=== PATIENT | female | born 1965 | race Two or more races ===

== ENCOUNTER 2017-03-04 18:43 | Emergency (ER) | payer MEDICARE ==
[2017-03-04] MEDS ORDERED: ASPIRIN 81 MG TABLET, CHEWABLE PO ONE (19:07)
--- NOTE | 2017-03-04 19:21 | ER Document Report ---
ED Medical Screen (RME) - General TRAVEL OUTSIDE OF THE [place] IN LAST 30 DAYS: No <NIKOLAS BARLOW - Last Filed: 03/04/17 19:22> <JEROME LEWIS - Last Filed: 03/04/17 20:23> - General Chief Complaint: Chest Pain Stated Complaint: CHEST PAIN Time Seen by Provider: 03/04/17 19:05 Notes: Patient is a 51 year old female presenting to the emergency department for chest pain that was onset this morning. Patient states she has pain in the center of her chest that shoots into her back. Patient states it hurts to take a deep breath and she also feels short of breath. Patient denies any personal or family history of [place] or stroke. Patient denies any personal history of diabetes mellitus or hypertension. Patient has arthritis. (NIKOLAS BARLOW) - Related Data Allergies/Adverse Reactions: abatacept [From Orencia] Allergy (Verified 03/04/17 18:57) metronidazole [From Flagyl] Allergy (Verified 03/04/17 18:57) morphine Allergy (Verified 03/04/17 18:57) Past Medical History - Social History Chew tobacco use (# tins/day): No Frequency of alcohol use: Occasional Drug Abuse: None Pulmonary Medical History: Reports: Hx Bronchitis Renal/ Medical History: Denies: Hx Peritoneal Dialysis Musculoskeltal Medical History: Reports Hx Arthritis - RA Past Surgical History: Reports: Hx Abdominal Surgery - Gastric bypass, tummy tuck, Hx Breast Surgery - biopsy, Hx Cholecystectomy, Hx Gynecologic Surgery, Hx Hysterectomy - Immunizations Hx Diphtheria, Pertussis, Tetanus Vaccination: Yes - 2014 History of Influenza Vaccine for 02/2017 - 07/2017 Season: Yes Influenza Administration Date for 02/2017 - 07/2017 Season: 02/26/16 <NIKOLAS BARLOW - Last Filed: 03/04/17 19:22> Physical Exam <NIKOLSA BARLOW - Last Filed: 03/04/17 19:22> <JEROME LEWIS - Last Filed: 03/04/17 20:23> - Vital signs Vitals: Temp Pulse Resp BP Pulse Ox 98.3 F 98 16 120/63 95 03/04/17 18:59 03/04/17 18:59 03/04/17 18:59 03/04/17 18:59 03/04/17 18:59 - Notes Notes: GENERAL: Alert, interacts well. No acute distress. LUNGS: Clear to auscultation bilaterally, no wheezes, rales, or rhonchi. No respiratory distress. No tenderness when palpating the anterior chest. HEART: Regular rate and rhythm. No murmurs, gallops, or rubs. ABDOMEN: Soft, non-tender. Non-distended. Bowel sounds present in all 4 quadrants. (NIKOLAS BARLOW) Course - Laboratory Result Diagrams: 03/04/17 19:38 03/04/17 19:38 <JEROME LEWIS - Last Filed: 03/04/17 20:23> - Vital Signs Vital signs: Temp Pulse Resp BP Pulse Ox 98.3 F 98 16 120/63 95 03/04/17 18:59 03/04/17 18:59 03/04/17 18:59 03/04/17 18:59 03/04/17 18:59 - Laboratory Laboratory results interpreted by me: 03/04/17 19:38 Sodium 147.1 H BUN 6 L Alkaline Phosphatase 149 H Scribe Documentation - Scribe Written by Scribe:: Cain Dickson 03/04/17 19:30 acting as scribe for :: Rob <NIKOLAS BARLOW - Last Filed: 03/04/17 19:22>
[2017-03-04 19:59] LABS: ABSOLUTE EOSINOPHILS # (AUTO) 0.1 10^3/uL (0.0-0.6); ABSOLUTE LYMPHOCYTES (AUTO) 1.3 10^3/uL (0.5-4.7); ABSOLUTE MONOCYTES (AUTO) 0.6 10^3/uL (0.1-1.4); ABSOLUTE NEUT (AUTO) 3.8 10^3/uL (1.7-8.2); BASOPHILS % (AUTO) 0.4 % (0-2); EOSINOPHILS % (AUTO) 2.1 % (0-6); HEMATOCRIT 38.6 % (36.0-47.0); HEMOGLOBIN 12.8 g/dL (12.0-15.5); HGB HCT DIFFERENCE -0.2; LYMPHOCYTES % (AUTO) 22.5 % (13-45); MEAN CORPUSCULAR HEMOGLOBIN 28.2 pg (27.0-33.4); MEAN CORPUSCULAR HGB CONC 33.1 g/dL (32.0-36.0); MEAN CORPUSCULAR VOLUME 85 fl (80-97); MONOCYTES % (AUTO) 10.5 % (3-13); RED BLOOD COUNT 4.53 10^6/uL (3.72-5.28); RED CELL DISTRIBUTION WIDTH 13.4 % (11.5-14.0); SEGMENTED NEUTROPHILS % (AUTO) 64.5 % (42-78); WHITE BLOOD COUNT 5.9 10^3/uL (4.0-10.5)
[2017-03-04 20:10] LABS: ALANINE AMINOTRANSFERASE 36 U/L (9-52); ALBUMIN 4.2 g/dL (3.5-5.0); ALKALINE PHOSPHATASE 149 U/L (38-126); ANION GAP 13 (5-19); ASPARTATE AMINO TRANSFERASE 32 U/L (14-36); BILIRUBIN,DIRECT 0.4 mg/dL (0.0-0.4); BILIRUBIN,TOTAL 0.4 mg/dL (0.2-1.3); BLOOD UREA NITROGEN 6 mg/dL (7-20); CALCIUM 9.4 mg/dL (8.4-10.2); CARBON DIOXIDE 28 mmol/L (22-30); CHLORIDE 106 mmol/L (98-107); CREATINE KINASE 62 U/L (30-135); CREATININE RESULT 0.75 mg/dL (0.52-1.25); GLUCOSE 79 mg/dL (75-110); POTASSIUM 4.1 mmol/L (3.6-5.0); SODIUM 147.1 mmol/L (137-145); TOTAL PROTEIN 7.4 g/dL (6.3-8.2)
[2017-03-04 20:22] LABS: CREATINE KINASE MB 0.61 ng/mL (<4.55)
[2017-03-04 20:23] LABS: TROPONIN I < 0.012 ng/mL
[2017-03-04] MEDS ORDERED: NORMAL SALINE 1000 ML 500 ML IV ONE (20:39)
--- NOTE | 2017-03-04 20:39 | ER Document Report ---
ED General - General Chief Complaint: Chest Pain Stated Complaint: CHEST PAIN Time Seen by Provider: 03/04/17 19:05 Notes: Patient is a 51-year-old female who comes emergency department for chief complaint of pain in her chest in the middle that started this morning, she states that when she takes deep breath it hurts through to her back, she states that it makes her feel slightly short of breath. She denies cough, fever, abdominal pain, nausea, vomiting, dizziness. She does not smoke. Past medical history of rheumatoid arthritis, on Plaquenil, has a fentanyl patch, also has a history of gastric bypass, cholecystectomy, hysterectomy. Denies any personal or family history of heart disease, DC, or blood clots. Denies recent travel or surgery, denies lower extremity swelling. She states that she was exposed to a child who has a cough, she also states that she has been having more pain than usual and is taking Tylenol in addition to her fentanyl patch. TRAVEL OUTSIDE OF THE [place] IN LAST 30 DAYS: No - Related Data Allergies/Adverse Reactions: abatacept [From Orencia] Allergy (Verified 03/04/17 18:57) metronidazole [From Flagyl] Allergy (Verified 03/04/17 18:57) morphine Allergy (Verified 03/04/17 18:57) Past Medical History - General Information source: Patient - Social History Smoking Status: Never Smoker Chew tobacco use (# tins/day): No Frequency of alcohol use: Occasional Drug Abuse: None Lives with: Family Family History: Reviewed & Not Pertinent Pulmonary Medical History: Reports: Hx Bronchitis Renal/ Medical History: Denies: Hx Peritoneal Dialysis Musculoskeltal Medical History: Reports Hx Arthritis - RA Past Surgical History: Reports: Hx Abdominal Surgery - Gastric bypass, tummy tuck, Hx Breast Surgery - biopsy, Hx Cholecystectomy, Hx Gynecologic Surgery, Hx Hysterectomy - Immunizations Hx Diphtheria, Pertussis, Tetanus Vaccination: Yes - 2013 Review of Systems - Review of Systems Constitutional: No symptoms reported EENT: No symptoms reported Cardiovascular: See HPI Respiratory: See HPI Gastrointestinal: No symptoms reported Genitourinary: No symptoms reported Female Genitourinary: No symptoms reported Musculoskeletal: See HPI Skin: No symptoms reported Hematologic/Lymphatic: No symptoms reported Neurological/Psychological: No symptoms reported Physical Exam - Vital signs Vitals: Temp Pulse Resp BP Pulse Ox 98.3 F 98 16 120/63 95 03/04/17 18:59 03/04/17 18:59 03/04/17 18:59 03/04/17 18:59 03/04/17 18:59 Interpretation: Normal - General General appearance: Appears well, Alert - HEENT Head: Normocephalic, Atraumatic Eyes: Normal Pupils: PERRL - Respiratory Respiratory status: No respiratory distress Chest status: Tender - Patient is tender over the chest wall along the sternum on both sides and between the ribs. Reproducible. No erythema, swelling, crepitus, or ecchymosis Breath sounds: Normal. No: Decreased air movement, Nonproductive cough, Wheezing Chest palpation: Normal - Cardiovascular Rhythm: Regular Heart sounds: Normal auscultation Murmur: No - Abdominal Inspection: Normal Distension: No distension Bowel sounds: Normal Tenderness: Nontender Organomegaly: No organomegaly - Back Back: Normal, Nontender - Extremities General upper extremity: Normal inspection, Nontender, Normal color, Normal ROM , Normal temperature General lower extremity: Normal inspection, Nontender, Normal color, Normal ROM , Normal temperature, Normal weight bearing. No: Ivonne's sign - Neurological Neuro grossly intact: Yes Cognition: Normal Orientation: AAOx4 Hartman Coma Scale Eye Opening: Spontaneous Hartman Coma Scale Verbal: Oriented Camelia Coma Scale Motor: Obeys Commands Hartman Coma Scale Total: 15 Speech: Normal Motor strength normal: LUE, RUE, LLE, RLE Sensory: Normal - Psychological Associated symptoms: Normal affect, Normal mood - Skin Skin Temperature: Warm Skin Moisture: Dry Skin Color: Normal Course - Re-evaluation Re-evalutation: Patient is well-appearing on exam, she is a tender chest wall, it is worse when she takes a deep breath, it is reproducible. She states she just came in because she was worried she was getting an infection from her knees. She denies any cough, fever, pain otherwise. Symptoms started 14 hours ago. CBC, chemistry unremarkable, cardiac enzymes negative despite constant persistent symptoms for 14 hours. D-dimer is not elevated. I did discuss a CAT scan of the chest because of patient's history of rheumatoid arthritis and because d- dimer is indeterminate. Patient declined. Patient was given Solu-Medrol and pain medication and afterwards her symptoms were gone. She is asking to leave. 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 I have low suspicion of pulmonary embolism , ACS, aortic dissection, or acute infectious process based on her examination, monitoring, and workup. Patient states she will follow-up tomorrow with her providers, discussed return precautions in detail, patient and family member state satisfaction and agreement. - Vital Signs Vital signs: Temp Pulse Resp BP Pulse Ox 98.3 F 98 14 100/58 L 97 03/04/17 18:59 03/04/17 18:59 03/04/17 22:31 03/04/17 22:31 03/04/17 22:31 - Laboratory Result Diagrams: 03/04/17 19:38 03/04/17 19:38 Laboratory results interpreted by me: 03/04/17 19:38 Sodium 147.1 H BUN 6 L Alkaline Phosphatase 149 H Discharge - Discharge Clinical Impression: Chest pain Qualifiers: Chest pain type: unspecified Qualified Code(s): R07.9 - Chest pain, unspecified Condition: Stable Disposition: HOME, SELF-CARE Additional Instructions: Your workup tonight does not show any concerning abnormalities. Please follow- up closely with both rheumatology and pain management. Return to the emergency department if you worsen in anyway including fever, cough, difficulty breathing , return or worsening pain, or any other concerning symptoms.
--- NOTE | 2017-03-04 20:52 | RADIOLOGY REPORT (SQ) ---
EXAM DESCRIPTION: CHEST SINGLE VIEW COMPLETED DATE/TIME: 03/04/2017 8:39 pm REASON FOR STUDY: chest pain, SOB COMPARISON: None. NUMBER OF VIEWS: One view. TECHNIQUE: Single frontal radiographic view of the chest acquired. LIMITATIONS: None. FINDINGS: LUNGS AND PLEURA: No opacities, masses or pneumothorax. No pleural effusion. MEDIASTINUM AND HILAR STRUCTURES: No masses. Contour normal. HEART AND VASCULAR STRUCTURES: Heart normal in size. Normal vasculature. BONES: No acute findings. HARDWARE: None in the chest. OTHER: No other significant finding. IMPRESSION: NO SIGNIFICANT RADIOGRAPHIC FINDING IN THE CHEST. TECHNICAL DOCUMENTATION: JOB ID: [id number] [employer]- All Rights Reserved
[2017-03-04] MEDS ORDERED: METHYLPREDNISOLONE INJ 125 MG/2 ML SDV IV ONE (21:56)
[2017-03-04] MEDS ORDERED: HYDROMORPHONE HCL INJ/PF 2 MG/ML AMPULE IV ONE (21:57)
[2017-03-04 23:32] VITALS: BP 100/58
--- NOTE | 2017-03-05 06:26 | EKG REPORT ---
SEVERITY:- OTHERWISE NORMAL ECG - SINUS RHYTHM BORDERLINE LEFT AXIS DEVIATION : Confirmed by: Shefali Loomis MD 05-Mar-2017 06:25:34
== END 2017-03-04 23:38 | disposition home or self-care (01) ==
LOC: ER 18:43
DX: R07.9 Chest pain, unspecified (principal); Z88.6 Allergy status to analgesic agent; Z98.84 Bariatric surgery status; Z90.49 Acquired absence of other specified parts of digestive tract; Z90.710 Acquired absence of both cervix and uterus
CPT/HCPCS: 93005; 99285; 96361; 96374; 96375; 36415; 82553; 82550; 83690; 85025; 80053; 84484; 85379; 71010; 93010; A9270; J2930; J1170; J7030